=== PATIENT | male | born 1995 | race Asian ===

== ENCOUNTER 2017-01-30 21:23 | Emergency (ER) | payer MEDICAID ==
[~2017-01-30] VITALS: Ht 175.3 cm; Wt 66.2 kg
[~2017-01-30 21:23] MED LIST: ALBUTEROL SULF8.5 GM INH; AZITHROMYCIN250 MG ORAL; ELIMITE 5% CREA60 GM TOPIC; IBUPROFEN800 M1 PO; IBUPROFEN800 MG ORAL; NKM; PREDNISONE20 MG ORAL; QVAR7.3 GM INH; SUDAFED60 MG ORAL; TAMIFLU75 MG ORAL
[2017-01-30 21:40] VITALS: BP 124/70
[2017-01-30] MEDS ORDERED: Fluorescein Strips LEFT EYE ONE (21:45)
[2017-01-30] MEDS ORDERED: IBUPROFEN600 MG ORAL (21:57)
[2017-01-30] MEDS ORDERED: POLYTRIM EYE DR10 M1 OP (21:57)
--- NOTE | 2017-01-30 21:57 | Emergency Room Report ---
History of Present Illness General Chief Complaint: Eye Problems Source: Patient Present Illness [facility] This is a 21-year-old male with no past medical history. He wears contact lenses. He presents with chief complaint of left eye pain. He went on a camping trip but without his contact lens solution. He was cleaning his legs with bottle water and then tapwater. He presents with left eye pain for one day. Red and able. Worse with blinking. No fever or chills. No swelling. Pain is 9/10. Use [id number] medication not helping. Once he use Aloe Vera juice without any relief. Allergies: Coded Allergies: No Known Allergies (Verified Allergy, Unknown, 12/14/07) Patient History Past Medical History: see triage record, old chart reviewed Past Surgical History: none Pertinent Family History: none Social History: Denies: smoking Immunizations: other Reviewed Nursing Documentation: PMH: Agreed, PSxH: Agreed Nursing Documentation-PMH Hx Cardiac Problems: No Hx Hypertension: No Hx Pacemaker: No Hx Asthma: Yes Hx COPD: No Hx Diabetes: No Hx Cancer: No Hx Gastrointestinal Problems: No Hx Dialysis: No Hx Neurological Problems: No Hx Cerebrovascular Accident: No Hx Seizures: No Review of Systems Eye: Reports: eye pain, Denies: blurred vision ENT: Denies: ear pain, nose congestion, throat swelling Respiratory: Denies: cough, shortness of breath Cardiovascular: Denies: chest pain, palpitations Gastrointestinal: Denies: abdominal pain, diarrhea, nausea, vomiting Musculoskeletal: Denies: back pain, joint pain Skin: Denies: rash Neurological: Denies: headache, numbness Endocrine: Denies: increased thirst, increased urine Hematologic/Lymphatic: Denies: easy bruising All Other Systems: negative except mentioned in HPI Physical Exam Vital Signs Date Time Temp Pulse Resp B/P (MAP) Pulse Ox O2 Delivery O2 Flow Rate FiO2 01/30/17 21:26 98.1 71 16 124/70 98 Room Air vitals normal Sp02 EP Interpretation: reviewed, normal General Appearance: well appearing, no apparent distress, alert Head: normocephalic, atraumatic Eyes: left eye other - Left conjunctiva injected. He has a small corneal abrasion at the 8:00 position. Negative Alyse sign. No foreign body., bilateral eye PERRL, bilateral eye EOMI ENT: hearing grossly normal, normal pharynx Neck: full range of motion, supple, no meningismus Respiratory: chest non-tender, lungs clear, normal breath sounds Cardiovascular #1: regular rate, rhythm, no murmur Gastrointestinal: normal bowel sounds, non tender, no mass, no organomegaly, no bruit, non-distended Musculoskeletal: back normal, gait/station normal, normal range of motion Psychiatric: mood/affect normal Skin: warm/dry Medical Decision Making Diagnostic Impression: Primary Impression: Corneal abrasion, left Qualified Codes: S05.02XA - Injury of conjunctiva and corneal abrasion without foreign body, left eye, initial encounter ER Course Patient with a cornea abrasion. No evidence of globe rupture. No evidence of foreign body. Last Vital Signs Date Time Temp Pulse Resp B/P (MAP) Pulse Ox O2 Delivery O2 Flow Rate FiO2 01/30/17 21:40 98.1 71 16 124/70 98 Room Air Status: improved Disposition: HOME, SELF-CARE Condition: Stable Scripts Ibuprofen* (MOTRIN*) 600 Mg Tablet 600 MG ORAL THREE TIMES A DAY, #30 TAB 0 Refills Prov: KOKI HOOD M.D. 01/30/17 Polymyxin B Sulf/Trimethoprim (POLYTRIM EYE DROPS) 10 Ml Drops 10 ML OP QID, #10 ML Prov: KOKI HOOD M.D. 01/30/17 Referrals: [facility],REFERRING (PCP) Additional Instructions: Wear glasses until symptoms resolved. Followup with your DrGisesl in 7 days. Followup with eye doctor if not better within 2-3 days. Return if worse. KOKI HOOD M.D. Jan 30, 2017 21:57
[2017-01-30 22:08] VITALS: BP 124/70
== END 2017-01-30 22:08 | disposition home or self-care (01) ==
LOC: EMR 21:47
DX: S05.02XA Injury of conjunctiva and corneal abrasion without foreign body, left eye, initial encounter (principal); X58.XXXA Exposure to other specified factors, initial encounter; Y92.9 Unspecified place or not applicable; J45.909 Unspecified asthma, uncomplicated
CPT/HCPCS: 99283

== ENCOUNTER 2017-03-06 10:59 | Emergency (ER) | payer MEDICAID ==
[~2017-03-06] VITALS: Ht 170.2 cm; Wt 65.8 kg
[~2017-03-06 10:59] MED LIST changes: +IBUPROFEN600 MG ORAL; +POLYTRIM EYE DR10 M1 OP
[2017-03-06] MEDS ORDERED: Lidocaine 1% 10mg/ml/Epi 0.005mg/ml 30ml vial INJ ONE ×2 (11:44→12:00)
[2017-03-06] MEDS ORDERED: Bacitracin Oint UD TOPIC ONE (12:00)
[2017-03-06] MEDS ORDERED: BACITRACIN ZIN1 EACH TOPIC (12:15)
[2017-03-06 12:25] VITALS: BP 122/84
--- NOTE | 2017-03-08 07:36 | Emergency Room Report ---
History of Present Illness General Chief Complaint: Head Injury Source: Patient Present Illness HPI Patient is a 22-year-old male presented after increased pain to his scalp. The patient reports standing up and hitting the top of his head on a table. He denies loss of consciousness. He reports having moderate pain. Injury occurred just prior to arrival. The patient stated that he had recent tetanus vaccine. He denied any other locations of injury. Allergies: Coded Allergies: No Known Allergies (Verified Allergy, Unknown, 12/14/07) Patient History Past Medical History: see triage record Reviewed Nursing Documentation: PMH: Agreed, PSxH: Agreed Nursing Documentation-PMH Hx Cardiac Problems: No Hx Hypertension: No Hx Pacemaker: No Hx Asthma: Yes Hx COPD: No Hx Diabetes: No Hx Cancer: No Hx Gastrointestinal Problems: No Hx Dialysis: No Hx Neurological Problems: No Hx Cerebrovascular Accident: No Hx Seizures: No Review of Systems All Other Systems: negative except mentioned in HPI Physical Exam Vital Signs Date Time Temp Pulse Resp B/P (MAP) Pulse Ox O2 Delivery O2 Flow Rate FiO2 03/06/17 11:02 98.6 78 20 120/77 98 Room Air General Appearance: well appearing, no apparent distress, alert, GCS 15, non- toxic Head: normocephalic, atraumatic ENT: hearing grossly normal, normal voice Neck: full range of motion, supple Respiratory: no respiratory distress, speaking full sentences Cardiovascular #1: normal inspection, no edema Musculoskeletal: no calf tenderness Neurologic: normal inspection, alert, oriented x3, responsive, normal gait Psychiatric: mood/affect normal Skin: no rash, laceration - laceration 2cm to vertex scalp clean Procedures Laceration/Wound Repair Laceration/Wound Repair : Consent: Verbal Wound Location: head Wound's Depth, Shape: superficial Wound Length (cm): 2 Wound Explored: clean Anesthesia: Lidocaine w/ Epi Volume Anesthetic (ccs): 3 Wound Repaired With: jenaro - 2 Patient Tolerated: Well Complications: None Medical Decision Making Diagnostic Impression: Primary Impression: Laceration of scalp ER Course Patient presented for head injury. Differential diagnoses included wasn't limited to fracture, contusion, intracranial hemorrhage, and among others. The patient presented awake alert and did not show any signs of acute intracranial injury.I do not feel that CT is indicated at this time.Was cleansed and closed with jenaro. The patient is advised to follow up with primary care doctor in 1-2 days. Patient is advised to return if any worsening condition or if any changes in status that are concerning. This report is dictated with [employer] assistant toddler teacher software which may occasionally lead to discrepancies related to use of this software. Patient has a benign exam and does not appear to require any further imaging or laboratory testing at this time. Last Vital Signs Date Time Temp Pulse Resp B/P (MAP) Pulse Ox O2 Delivery O2 Flow Rate FiO2 03/06/17 12:25 98.6 68 18 122/84 100 Room Air Status: improved Disposition: HOME, SELF-CARE Condition: Stable Scripts Bacitracin Zinc* (BACITRACIN ZINC*) 1 Each Packet 1 APPLIC TOPIC THREE TIMES A DAY, #20 PACKET Prov: Jason Boo 03/06/17 Patient Instructions: Stitches, Jenaro, or Adhesive Wound Closure Jason Boo Mar 08, 2017 07:36
== END 2017-03-06 12:25 | disposition home or self-care (01) ==
LOC: EMR 11:30
DX: S01.01XA Laceration without foreign body of scalp, initial encounter (principal); W22.8XXA Striking against or struck by other objects, initial encounter; Y92.9 Unspecified place or not applicable; J45.909 Unspecified asthma, uncomplicated
CPT/HCPCS: 12001; 99283; Z7502

== ENCOUNTER 2017-03-14 17:51 | Emergency (ER) | payer MEDICAID ==
[~2017-03-14] VITALS: Ht 170.2 cm; Wt 65.8 kg
[~2017-03-14 17:51] MED LIST changes: +BACITRACIN ZIN1 EACH TOPIC
[2017-03-14] MEDS ORDERED: PREDNISONE20 MG ORAL (19:05)
[2017-03-14] MEDS ORDERED: PROMETHAZINE-C118 M1 ORAL (19:05)
[2017-03-14] MEDS ORDERED: ALBUTEROL SULF8.5 GM INH (19:05)
[2017-03-14 19:23] VITALS: BP 101/68
--- NOTE | 2017-03-15 13:26 | Emergency Room Report ---
History of Present Illness General Chief Complaint: Flu Like Symptoms Source: Patient Present Illness HPI 22-year-old male presents ED for evaluation. Patient is here for staple removal. Status post head injury 8 days ago. 2 jenaro placed. States that he was on the floor and got up suddenly and hit his head on the table. No LOC. Patient also complaining of cough and wheezing and bodyaches and chills. Afebrile. Has history of asthma. Cough is dry. Denies sore throat or earache. Denies sick contacts or recent travel. No other activity relieving factors. Denies any other associated symptoms Allergies: Coded Allergies: No Known Allergies (Verified Allergy, Unknown, 12/14/07) Patient History Past Medical History: asthma Past Surgical History: none Pertinent Family History: none Social History: Denies: smoking, alcohol use, drug use Immunizations: UTD Reviewed Nursing Documentation: PMH: Agreed, PSxH: Agreed Nursing Documentation-PMH Past Medical History: No History, Except For Hx Cardiac Problems: No Hx Hypertension: No Hx Pacemaker: No Hx Asthma: Yes Hx COPD: No Hx Diabetes: No Hx Cancer: No Hx Gastrointestinal Problems: No Hx Dialysis: No Hx Neurological Problems: No Hx Cerebrovascular Accident: No Hx Seizures: No Review of Systems All Other Systems: negative except mentioned in HPI Physical Exam Vital Signs Date Time Temp Pulse Resp B/P (MAP) Pulse Ox O2 Delivery O2 Flow Rate FiO2 03/14/17 18:28 102.9 114 20 111/71 97 Room Air Sp02 EP Interpretation: reviewed, normal General Appearance: no apparent distress, alert, GCS 15, non-toxic Head: normocephalic, other - wound C/D/I, well approxmated 2 jenaro noted Eyes: bilateral eye normal inspection, bilateral eye PERRL ENT: hearing grossly normal, normal pharynx, no angioedema, normal voice, TMs + canals normal Neck: full range of motion, supple/symm/no masses Respiratory: chest non-tender, lungs clear, normal breath sounds, speaking full sentences Cardiovascular #1: regular rate, rhythm, no edema Cardiovascular #2: 2+ carotid (R), 2+ carotid (L), 2+ radial (R), 2+ radial (L) , 2+ dorsalis pedis (R), 2+ dorsalis pedis (L) Gastrointestinal: normal bowel sounds, non tender, soft, non-distended, no guarding, no rebound Rectal: deferred Genitourinary: normal inspection, no CVA tenderness Musculoskeletal: back normal, gait/station normal, normal range of motion, non- tender Neurologic: alert, oriented x3, responsive, motor strength/tone normal, sensory intact, speech normal Psychiatric: judgement/insight normal, memory normal, mood/affect normal, no suicidal/homicidal ideation Reflexes: 3+ bicep (R), 3+ bicep (L), 3+ tricep (R), 3+ tricep (L), 3+ knee (R) , 3+ knee (L) Skin: normal color, no rash, warm/dry, well hydrated Lymphatic: no adenopathy Medical Decision Making Diagnostic Impression: Primary Impression: Removal of jenaro Additional Impression: Bronchitis ER Course Hospital Course 22-year-old male presents ED for staple removal. Also complaining of weakness, bodyaches, cough Differential diagnoses include: URI, pharyngitis, otitis media, asthma Clinical course Patient placed on stretcher. After initial history, physical exam reveals a young male in no acute distress. Bilateral TM unremarkable. No pharyngeal erythema. No tonsillar exudates. No lymphadenopathy. lungs clear. abdomen soft. jenaro removed without difficulty Clinical findings consistent with bronchitis. Reassurance given. treatment is supportive therapy Diagnosis - bronchitis, removal of jenaro Stable and discharged home with Rx Albuterol, prednisone, promethazine/codeine. Instructed to followup with PMD. Return to ED if symptoms recur or worsen Last Vital Signs Date Time Temp Pulse Resp B/P (MAP) Pulse Ox O2 Delivery O2 Flow Rate FiO2 03/14/17 19:23 108 18 101/68 97 Room Air 03/14/17 19:21 98.3 Status: improved Disposition: HOME, SELF-CARE Condition: Stable Scripts Codeine/Promethazine Hcl* (PROMETHAZINE-CODEINE SYRUP*) 118 Ml Syrup 5 ML ORAL Q4H Y for For Cough, #118 ML 0 Refills Prov: JUDY CASTANEDA M.D. 03/14/17 Prednisone* (PREDNISONE*) 20 Mg Tablet 40 MG ORAL DAILY, #10 TAB Prov: JUDY CASTANEDA M.D. 03/14/17 Albuterol Sulfate* (ALBUTEROL SULFATE MDI*) 8.5 Gm Hfa.aer.ad 2 PUFF INH Q6H, #1 EA 0 Refills Prov: JUDY CASTANEDA M.D. 03/14/17 Departure Forms: Return to Work Return to Work Date: Mar 16, 2017 Work Restrictions: None Patient Instructions: Acute Bronchitis, [id number] JUDY CASTANEDA M.D. Mar 15, 2017 13:26
== END 2017-03-14 19:23 | disposition home or self-care (01) ==
LOC: EMR 18:39
DX: Z48.02 Encounter for removal of sutures (principal); J40 Bronchitis, not specified as acute or chronic; J45.909 Unspecified asthma, uncomplicated
CPT/HCPCS: 99283

== ENCOUNTER 2017-06-19 06:12 | Emergency (ER) | payer MEDICAID ==
[~2017-06-19] VITALS: Ht 172.7 cm; Wt 63.5 kg
[~2017-06-19 06:12] MED LIST changes: +PROMETHAZINE-C118 M1 ORAL
[2017-06-19 06:23] VITALS: BP 109/77
[2017-06-19] MEDS ORDERED: PREDNISONE20 MG ORAL (06:35)
[2017-06-19] MEDS ORDERED: ALBUTEROL2.5 MG/3 M HHN (06:35)
[2017-06-19] MEDS ORDERED: COMPACT COMPRE1 EACH MC (06:35)
--- NOTE | 2017-06-19 06:39 | Emergency Room Report ---
History of Present Illness General Chief Complaint: Asthma Source: Patient, Medical Record Present Illness HPI 22-year-old male with history of asthma, p/w wheezing/SOB for 7 days. SOB occurs both at rest and on exertion. + non productive cough. Also with sinus pressure with clear nasal discharge. Denies chest pain. Patient has been using albuterol inhaler every 4 times a day. Patient does not have nebulizer at home. No recent steroid use. Pt states that this episode is similar to other episodes of asthma exacerbation. Denies fever, chills. Denies sick contacts or recent travel. Patient denies history of ICU admissions, intubations, or usage of BIPAP for asthma. Patient also states that he recently tested positive for the HIV with the rapid test, he is still undergoing additional testing with his PCP Allergies: Coded Allergies: No Known Allergies (Verified Allergy, Unknown, 12/14/07) Patient History Past Medical History: see triage record Past Surgical History: none Pertinent Family History: none Reviewed Nursing Documentation: PMH: Agreed; PSxH: Agreed Nursing Documentation-PMH Past Medical History: No History, Except For Hx Cardiac Problems: No Hx Hypertension: No Hx Pacemaker: No Hx Asthma: Yes Hx COPD: No Hx Diabetes: No Hx Cancer: No Hx Gastrointestinal Problems: No - HIV Hx Dialysis: No Hx Neurological Problems: No Hx Cerebrovascular Accident: No Hx Seizures: No Review of Systems All Other Systems: negative except mentioned in HPI Physical Exam Vital Signs Date Time Temp Pulse Resp B/P (MAP) Pulse Ox O2 Delivery O2 Flow Rate FiO2 06/19/17 06:13 98.0 82 16 109/77 92 Room Air 98.1 Sp02 EP Interpretation: reviewed, normal General Appearance: normal inspection, well appearing, no apparent distress, alert, GCS 15, non-toxic Head: normocephalic, atraumatic Eyes: bilateral eye normal inspection, bilateral eye PERRL, bilateral eye EOMI ENT: normal ENT inspection, normal pharynx, normal voice, moist mucus membranes Neck: normal inspection, full range of motion, supple Respiratory: respiratory distress, speaking full sentences, wheezing, expiration Cardiovascular #1: normal inspection, regular rate, rhythm, no edema, normal capillary refill Cardiovascular #2: 2+ radial (R), 2+ radial (L) Gastrointestinal: normal inspection, non tender, soft, non-distended, no guarding Genitourinary: no CVA tenderness Musculoskeletal: normal inspection, back normal, normal range of motion, non- tender Neurologic: normal inspection, alert, oriented x3, responsive, motor strength/ tone normal, sensory intact, normal gait, speech normal Psychiatric: normal inspection, judgement/insight normal, memory normal Skin: normal inspection, normal color, no rash, warm/dry, well hydrated, normal turgor Medical Decision Making Diagnostic Impression: Primary Impression: Acute asthma exacerbation ER Course 22-year-old male with history of asthma p/w SOB DDX: Asthma exacerbation, pneumonia, upper respiratory infection/viral syndrome Plan: Combivent nebulizer treatment x 3, steroids, EKG, CXR ER Course: Patient has been treated with combivent x 3, steroids Patient's overall respiratory status has improved in ED. Patient states improvement of symptoms. Patient continues to speak in complete sentences and is not in respiratory distress. Repeat lung auscultation: good air entry with no wheezing.. Disposition: Patient will be discharged to home with course of steroids and albuterol nebulizer Strict precautions are discussed with patient on when to emergently return to the ED including: persistent or worsening SOB, chest pain, fever, chills, which could indicate severe illness. Patient verbalized understanding. Patient is to follow up with her/his PMD within 5 days. Patient agrees with plan. Please note that this Emergency Department Report was dictated using [employer] inspector technology software, occasionally this can lead to erroneous entry secondary to interpretation by the dictation equipment. Last Vital Signs Date Time Temp Pulse Resp B/P (MAP) Pulse Ox O2 Delivery O2 Flow Rate FiO2 06/19/17 06:23 82 16 Room Air 06/19/17 06:23 98.1 109/77 92 98.1 Disposition: HOME, SELF-CARE Condition: Improved Scripts Nebulizer (Compact Compressor Nebulizer) 1 Each Each [facility], #1 Prov: Retino,Clairose M.D. 06/19/17 Albuterol Sulfate* (ALBUTEROL SULFATE HHN*) 2.5 Mg/3 Ml Vial.neb 2.5 MG HHN Q4H PRN for Shortness of Breath, #25 VIAL Prov: Retino,Clairose M.D. 06/19/17 Prednisone* (PREDNISONE*) 20 Mg Tablet 40 MG ORAL DAILY for 5 Days, #10 TAB Prov: Retino,Clairose M.D. 06/19/17 Patient Instructions: Asthma, Adult Saida Trinidad M.D. Jun 19, 2017 06:39
[2017-06-19] MEDS ORDERED: Ipratropium 0.02% Inh Soln 2.5ml UD HHN ONE (06:45)
[2017-06-19] MEDS: Albuterol ud Inhalation HHN SCH ×3 (06:50→07:14)
[2017-06-19 07:43] VITALS: BP 132/93
== END 2017-06-19 07:44 | disposition home or self-care (01) ==
LOC: EMR 06:36
DX: J45.901 Unspecified asthma with (acute) exacerbation (principal)
CPT/HCPCS: 94640; 94664; 99284; J7512

== ENCOUNTER 2017-12-21 04:42 | Emergency (ER) | payer MEDICAID ==
[~2017-12-21] VITALS: Ht 172.7 cm; Wt 65.8 kg
[~2017-12-21 04:42] MED LIST changes: +ALBUTEROL2.5 MG/3 M HHN; +COMPACT COMPRE1 EACH MC
[2017-12-21] MEDS ORDERED: Albuterol ud Inhalation HHN ONE ×3 (04:45→05:45)
[2017-12-21] MEDS ORDERED: Ipratropium 0.02% Inh Soln 2.5ml UD HHN ONE (04:45)
--- NOTE | 2017-12-21 04:51 | Emergency Room Report ---
History of Present Illness General Chief Complaint: asthma Source: Patient Present Illness HPI Patient presents with complaints of short of breath and asthma exacerbation Patient reports that he was in his room when the exacerbation occurred Denies any smoking denies any chest pain Denies any back or flank pain Denies any vomiting Patient has history of asthma Last presentation to our ER was in May Denies any fevers denies any cough Allergies: Coded Allergies: No Known Allergies (Verified Allergy, Unknown, 12/14/07) Patient History Past Medical History: see triage record Pertinent Family History: none Reviewed Nursing Documentation: PMH: Agreed; PSxH: Agreed Nursing Documentation-PMH Hx Cardiac Problems: No Hx Hypertension: No Hx Pacemaker: No Hx Asthma: Yes Hx COPD: No Hx Diabetes: No Hx Cancer: No Hx Gastrointestinal Problems: No - HIV Hx Dialysis: No Hx Neurological Problems: No Hx Cerebrovascular Accident: No Hx Seizures: No Review of Systems All Other Systems: negative except mentioned in HPI Physical Exam 98% on room air Sp02 EP Interpretation: reviewed, normal General Appearance: mild distress - Appears mildly short of breath Head: normocephalic, atraumatic Eyes: bilateral eye PERRL, bilateral eye EOMI ENT: hearing grossly normal, normal pharynx, TMs + canals normal, uvula midline Neck: full range of motion, supple, no meningismus, no bony tend Respiratory: no respiratory distress, no retraction, no accessory muscle use, wheezing - Bilaterally Cardiovascular #1: normal peripheral pulses, regular rate, rhythm, no edema, no gallop, no JVD, no murmur Gastrointestinal: normal bowel sounds, non tender, soft, no mass, no organomegaly, non-distended, no guarding, no hernia, no pulsatile mass, no rebound Genitourinary: no CVA tenderness Musculoskeletal: normal inspection Neurologic: oriented x3, responsive, high school mathematics teacher III-XII nml as tested, motor strength/ tone normal, sensory intact Psychiatric: mood/affect normal Skin: normal color, no rash, warm/dry, palpation normal Lymphatic: normal inspection, no adenopathy Medical Decision Making Diagnostic Impression: Primary Impression: Acute asthma exacerbation ER Course After further discussion patient reports that his father was sweeping the floor and he recalls a large amount of dust flying in the air when he also took a deep breath and feels that this exacerbated his asthma After multiple treatments patient has done significantly better at this time reports that he would like to go to work and therefore requesting discharge patient was placed on steroids and further treatments for home and will return with any changes Status: improved Disposition: HOME, SELF-CARE Condition: Improved Scripts Gentamicin Sulfate (GENTAMICIN SULFATE*) 15 Gm Oint...g. 1 APPLIC TOPIC BID for 7 Days, #15 GM 0 Refills Prov: Stephenie Angel DO 12/21/17 Naphazoline Hcl/Pheniramine (VISINE-A EYE DROPS) 15 Ml Drops 2 ML OP TID for 7 Days, ML Prov: Stephenie Angel DO 12/21/17 Prednisone* (PREDNISONE*) 20 Mg Tablet 20 MG ORAL BID, #10 TAB Prov: Stephenie Angel DO 12/21/17 Albuterol Sulfate* (ALBUTEROL SULFATE MDI*) 8.5 Gm Hfa.aer.ad 2 PUFF INH Q6H, #1 EA 0 Refills Prov: Stephenie Angel DO 12/21/17 Albuterol Sulfate* (ALBUTEROL SULFATE HHN*) 2.5 Mg/3 Ml Vial.neb 2.5 MG HHN Q4H PRN for Shortness of Breath, #25 VIAL Prov: Stephenie Angel DO 12/21/17 Additional Instructions: Patient is provided with the discharge instructions notified to follow up with primary doctor in the next 2-3 days otherwise return to the er with any worsening symptoms. Please note that this report is being documented using [employer] technology. This can lead to erroneous entry secondary to incorrect interpretation by the dictating instrument. Stephenie Angel DO Dec 21, 2017 04:51
[2017-12-21 05:25] VITALS: BP 99/67
[2017-12-21] MEDS ORDERED: PREDNISONE20 MG ORAL (05:36)
[2017-12-21] MEDS ORDERED: ALBUTEROL2.5 MG/3 M HHN (05:36)
[2017-12-21] MEDS ORDERED: ALBUTEROL SULF8.5 GM INH (05:36)
[2017-12-21] MEDS ORDERED: VISINE-A EYE DR15 ML OP (06:03)
[2017-12-21] MEDS ORDERED: GENTAMICIN SULF15 G2 TOPIC (06:08)
[2017-12-21] MEDS ORDERED: Levalbuterol Inh UD 1.25mg/0.5ml HHN ONE (06:15)
[2017-12-21 06:54] VITALS: BP 120/79
== END 2017-12-21 06:54 | disposition home or self-care (01) ==
LOC: EMR 04:51
DX: J45.901 Unspecified asthma with (acute) exacerbation (principal)
CPT/HCPCS: 94640; 94664; 99284; J7512; J7644